=== PATIENT | female | born 1970 | race American Indian/Alaskan Native ===

== ENCOUNTER 2022-04-20 06:05 | Day surgery (SDC) | payer BC ==
[~2022-04-20 06:05] MED LIST: LACTATED RINGERS 1,000 ML IV SCH; MIDAZOLAM 2 MG/2 ML INJ IV NR
[2022-04-20] MEDS ORDERED: BACTERIOSTATIC SODIUM CHLORIDE 0.9% 30 ML VIAL INFILTRATI ONE (06:42)
[2022-04-20] MEDS ORDERED: propofoL 200 MG/20 ML VIAL IV ONE (07:23)
[2022-04-20] MEDS ORDERED: LIDOCAINE MPF (2%) 20 MG/1 ML VIAL 5 ML ONE (07:24)
--- NOTE | 2022-04-20 07:31 | Anesthesia Consultation ---
Anesthesia Consult and Med Hx Date of service: 04/20/22 - Airway Anesthetic Teeth Evaluation: Good, Chipped (#9) ROM Head & Neck: Adequate Mental/Hyoid Distance: Adequate Mallampati Class: Class I Intubation Access Assessment: Probably Good - Pre-Operative Health Status ASA Pre-Surgery Classification: ASA3 Proposed Anesthetic Plan: MAC Nerve Block: IS (pending discussion with surgeon) - Pulmonary Hx Smoking: No Hx Respiratory Symptoms: No Hx Sleep Apnea: Yes (+ CPAP) - Cardiovascular System Hx Hypertension: Yes (took antihypertensives this morning) Hx Heart Attack/AMI: No (hx cardiomyopathy w/ 2007; resolved per patient) - Central Nervous System CVA: No - Endocrine Hx Renal Disease: No Hx Liver Disease: No Hx Non-Insulin Dependent Diabetes: Yes Hx Thyroid Disease: No - Other Systems Hx Obesity: Yes (BMI 50.9) - Additional Comments Anesthesia Medical History Comments: No hx anesthetic complications.
--- NOTE | 2022-04-20 07:32 | Anesthesia Day of Surgery ---
Anesthesia Day of Surgery - Day of Surgery Patient Examined: Yes Patient H&P Reviewed: Yes Patient is NPO: Yes Beta Blockers: Yes (carvedilol today AM)
[2022-04-20] MEDS ORDERED: LIDOCAINE (1%) 10 MG/1 ML VIAL 20 ML MDV ONE (07:46)
[2022-04-20] MEDS ORDERED: ROPIVACAINE/PF (0.5%) 5 MG/1 ML 30 ML VIAL ONE (07:51)
--- NOTE | 2022-04-20 08:20 | Discharge Summary ---
Short Stay Discharge Plan Weight Bearing Status: Non-Weight Bearing Diet: regular Follow up with: YESENIA TINEO MD [Primary Care Provider] - 7 Days SKYLAR CAMARENA II, MD [Staff Physician] - 14 Days
--- NOTE | 2022-04-20 08:34 | Operative Report ---
DATE OF SURGERY: 04/20/2022 PREOPERATIVE DIAGNOSIS: Left shoulder adhesive capsulitis. POSTOPERATIVE DIAGNOSIS: Left shoulder adhesive capsulitis. PROCEDURES PERFORMED: Left shoulder manipulation under anesthesia. SURGEON: Darrian Larson II, MD ANESTHESIA: IV sedation. INDICATIONS: The patient is a 51-year-old female who has been having refractory pain in her left shoulder. Evaluation workup suggested for an adhesive capsulitis. Recommended the patient undergo manipulation under anesthesia. Risks, benefits and limitations of surgery were discussed with the patient including bleeding, infection, injury to nerves, blood vessel, need for operation. The patient appeared to understand the risks and consented to undergo surgery. DESCRIPTION OF PROCEDURE: In the preoperative holding area, site was marked with surgical marking pen. The patient received an interscalene block, was brought to the operating room, received IV sedation. Timeout was performed confirming the left side was the correct side and then a gentle manipulation was performed on the left shoulder. There was a release of scar tissue that was felt. The patient was noted to have full range of motion prior to the manipulation. The patient's external rotation in neutral, forward flexion 90 degrees. The patient was awakened and taken to recovery room in stable condition. POSTOPERATIVE PLAN: The patient will do activities as tolerated. She will wear a sling. She will follow up with us in 2 weeks' time. We will have her go to physical therapy beginning tomorrow to work on range of motion exercises. TID: [id number] RECEIPT: [id number] [facility]
--- NOTE | 2022-04-20 09:18 | Post Anesthesia Evaluation ---
- Post Anesthesia Evaluation Patient Participated: Yes Airway Patent: Yes Stable Respiratory Function: Yes Nausea/Vomiting: No Temp > 96.8F: Yes Pain Manageable: Yes Adequeate Hydration: Yes Anesthesia Complications: No
[2022-04-20 09:40] VITALS: BP 110/74
== END 2022-04-20 10:15 | disposition home or self-care (01) ==
LOC: OR 06:05
PROVIDERS: ATTEND Orthopaedic Surgery Sports Medicine
DX: M75.02 Adhesive capsulitis of left shoulder (principal); I42.9 Cardiomyopathy, unspecified; G47.33 Obstructive sleep apnea (adult) (pediatric); E66.9 Obesity, unspecified; E11.9 Type 2 diabetes mellitus without complications; F41.9 Anxiety disorder, unspecified; Z88.8 Allergy status to other drugs, medicaments and biological substances; Z79.899 Other long term (current) drug therapy; Z68.43 Body mass index [BMI] 50.0-59.9, adult; Z90.710 Acquired absence of both cervix and uterus
CPT/HCPCS: 23700; 82962; J2250; J2704; J2795; J3490; J7120